=== PATIENT | male | born 1990 | race American Indian/Alaskan Native ===

== ENCOUNTER 2019-01-14 09:49 | Day surgery (SDC) | payer MEDICARE ==
[~2019-01-14 09:49] MED LIST: ANCEF/STERILE WATER 2 GM/20 ML 2 GM/20 ML SYRINGE IV NR; HEPARIN 10,000 UNITS/10 ML IR ONE; MARCAINE 0.5% INFILTRATI ONE; NACL 0.9% 1000 ML 1,000 ML IV SCH; NACL 0.9% 500 ML IV ONE; NACL 0.9% IR ONE
[2019-01-14] MEDS ORDERED: NARCAN 0.4 MG/1 ML IV PRN (11:26)
[2019-01-14] MEDS ORDERED: ZOFRAN IV PRN (11:26)
[2019-01-14] MEDS ORDERED: DILAUDID IV PRN (11:26)
[2019-01-14] MEDS ORDERED: SUBLIMAZE IV PRN (11:26)
--- NOTE | 2019-01-14 11:26 | Anesthesia Day of Surgery ---
Anesthesia Day of Surgery - Day of Surgery Patient Examined: Yes Patient H&P Reviewed: Yes Patient is NPO: Yes Beta Blockers: No Cardiac Clearance: No Pulmonary Clearance: No
--- NOTE | 2019-01-14 11:26 | Anesthesia Consultation ---
Anesthesia Consult and Med Hx Date of service: 01/14/19 - Airway Anesthetic Teeth Evaluation: Good ROM Head & Neck: Adequate Mental/Hyoid Distance: Adequate Mallampati Class: Class II Intubation Access Assessment: Good - Pulmonary Exam CTA: Yes - Cardiac Exam Cardiac Exam: RRR - Pre-Operative Health Status ASA Pre-Surgery Classification: ASA3 Proposed Anesthetic Plan: General - Pulmonary Hx Asthma: Yes (Last used inhaler "sometime last year") - Cardiovascular System Hx Hypertension: Yes - Central Nervous System Hx Psychiatric Problems: Yes - Endocrine Hx Renal Disease: Yes Hx End Stage Renal Disease: Yes - Hematic Hx Anemia: Yes - Other Systems Hx Substance Use: Yes (Marijuana occas) Hx Cancer: No
[2019-01-14] MEDS ORDERED: NACL 0.9% 500 ML IV ONE (16:00)
[2019-01-14] MEDS ORDERED: HEPARIN 10,000 UNITS/10 ML IR ONE (16:00)
[2019-01-14] MEDS ORDERED: NACL 0.9% IR ONE ×2 (16:00)
[2019-01-14] MEDS ORDERED: MARCAINE 0.5% INFILTRATI ONE ×2 (16:00)
[2019-01-14] MEDS ORDERED: DIPRIVAN 10 MG/ML IV ONE (16:03)
[2019-01-14] MEDS ORDERED: DILAUDID ONE (16:03)
--- NOTE | 2019-01-14 18:02 | Post Operative Note ---
Pre-op diagnosis: end-stage renal disease and HIV Post-op diagnosis: same Findings: Smallish radial artery. Good quality cephalic vein. Soft thrill and bruit in fistula Procedure: Creation of left forearm transposed cephalic vein to radial artery hemodialysis fistula Anesthesia: TRISTA Surgeon: FELTON HOFF Estimated blood loss: minimal Pathology: none Condition: stable Disposition: same day
--- NOTE | 2019-01-14 18:07 | Short Stay Summary ---
Short Stay Documentation Date of service: 01/14/19 Narrative H&P: Admitted to the operating room for outpatient creation of left arm AV fistula - History H&P: obtained from office - Allergies and Medications Current Medications: Allergies No Known Allergies Allergy (Unverified 01/12/19 17:15) Home Medications Medication Instructions Recorded Confirmed Last Taken Type Albuterol Sulfate [Albuterol 8.5 gm IH Q4H PRN 01/12/19 01/12/19 Unknown History Sulfate Hfa] Calcium Acetate [Phoslo] 3 cap PO TIDAC 01/12/19 01/14/19 01/13/19 11:05 History Darunavir/Cobicistat (Nf) 1 tab PO DAILY 01/12/19 01/14/19 01/13/19 20:00 History [Prezcobix 800 mg-150 mg (Nf)] Dolutegravir [Tivicay] 50 mg PO DAILY 01/12/19 01/14/19 01/13/19 20:00 History Labetalol HCl 400 mg PO BID 01/12/19 01/14/19 01/14/19 08:00 History amLODIPine [Norvasc] 10 mg PO DAILY 01/12/19 01/14/19 01/14/19 08:00 History lamiVUDine [lamiVUDine Hbv] 100 mg PO Q48HR 01/12/19 01/14/19 01/13/19 20:00 History Active Medications Fentanyl (Sublimaze) 50 mcg IV Q5MIN PRN PRN Reason: Pain , Severe (7-10) Hydromorphone HCl (Dilaudid) 0.5 mg IV Q10MIN PRN PRN Reason: Pain , Severe (7-10) Cefazolin Sodium (Ancef/Sterile Water 2 Gm/20 Ml) 2 gm in 20 mls @ 80 mls/hr IV PREOP NR; Protocol Stop: 01/14/19 23:59 Sodium Chloride (Nacl 0.9% 1000 Ml) 1,000 mls @ 42 mls/hr IV DIRECT MILDRED Last Admin: 01/14/19 11:05 Dose: 42 mls/hr Documented by: Naloxone HCl (Narcan 0.4 Mg/1 Ml) 0.1 mg IV Q2MIN PRN PRN Reason: Res Rate </= 8 or 02 SAT < 92% Ondansetron HCl (Zofran) 4 mg IV ONCE PRN PRN Reason: Nausea And Vomiting - Brief post op/procedure progress note Date of procedure: 01/14/19 Procedure: Pre-op diagnosis: end-stage renal disease and HIV Post-op diagnosis: same Findings: Smallish radial artery. Good quality cephalic vein. Soft thrill and bruit in fistula Procedure: Creation of left forearm transposed cephalic vein to radial artery hemodialysis fistula Anesthesia: GETA Surgeon: FELTON HOFF Estimated blood loss: minimal Pathology: none Condition: stable Disposition: same day - Disposition Condition at discharge: Stable Disposition: DC-01 TO HOME OR SELFCARE - Discharge Diagnoses (1) End stage renal disease on dialysis Status: Chronic Short Stay Discharge Plan Activity: advance as tolerated Diet: renal Wound: keep clean and dry Special Instructions: no heavy lifting Follow up with: PRIMARY CARE,MD [Primary Care Provider] - 7 Days FELTON HOFF MD [Staff Physician] - 7 Days Prescriptions: HYDROcodone/ACETAMINOPHEN [Oxly 5-325 Tablet] 1 each PO Q6H PRN #20 tablet PRN Reason: Pain, Moderate (4-6)
[2019-01-14 19:49] VITALS: BP 142/87
--- NOTE | 2019-01-14 21:38 | Operative Report ---
Operative Report Operative Report: Date of procedure: 01/14/2019 Pre-operative diagnosis: End-stage renal disease, HIV Post-operative diagnosis: Same Procedure name(s): Creation of left forearm transposed cephalic vein to radial artery fistula Surgeon: Maxx Robbins MD Paperhanger: None Anesthesia: Gen. via LMA EBL: Less than 10 mL Specimen(s): None Complications: None Findings: Small radial artery with some spasm. Excellent cephalic vein which drains into the basilic system Procedure: Patient in the supine position with the left arm extended the entire extremity is prepped and draped using standard sterile technique. A used to ultrasound and a tourniquet to confirm the cephalic vein was adequate for fistula creation. I then made a longitudinal incision near the wrist over the vein and carried down sharply through the subcutaneous tissue. The vein was mobilized for several centimeters. A second vertical incision was made along the distal volar aspect of the forearm overlying the radial artery and carried down through the subcutaneous tissue. Itself had some minor spasm otherwise was on the lower end of adequate. Once mobilized I then created a subcutaneous tunnel between the 2 incisions and then divided the cephalic vein distally. It was irrigated and hydrodilated. It was then brought through the tunnel into the radial artery incision and a nonrotational fashion. Artery was then occluded and the inflow was dilated to 2-1/2 mm using Ignacio dilators. This was after a longitudinal arteriotomy had been made. Inflow was adequate. An end to side anastomosis was then created using 6-0 Prolene suture in running technique. Prior to completion of the suture line antegrade and retrograde flushing was performed and the suture line was then completed. Lobe was released retrograde into the fistula then antegrade and then released back to the hand. Fistula developed a soft thrill and bruit. Hemostasis was adequate and the incisions were blocked with Marcaine and closed using 3-0 Vicryl subcutaneous 4-0 Monocryl subcuticular. The skin was sealed with Dermabond. The fistula thrill was not as robust as I would have liked but the patient had a relative hypotensive blood pressure and therefore I felt that it was probably satisfactory after interrogation with the intraoperative ultrasound showed arterialized flow throughout the vein. Patient was then returned to the supine position and extubated and returned to the recovery room in stable condition having tolerated the procedure well. Sponge and needle counts were correct.
--- NOTE | 2019-01-15 08:50 | Post Anesthesia Evaluation ---
- Post Anesthesia Evaluation Patient Participated: Yes Airway Patent: Yes Stable Respiratory Function: Yes Nausea/Vomiting: No Temp > 96.8F: Yes Pain Manageable: Yes Adequeate Hydration: Yes Anesthesia Complications: No
== END 2019-01-14 19:30 | disposition home or self-care (01) ==
LOC: OR 09:49
PROVIDERS: ATTEND Surgery Vascular Surgery
DX: I12.0 Hypertensive chronic kidney disease with stage 5 chronic kidney disease or end stage renal disease (principal); N18.6 End stage renal disease; B20 Human immunodeficiency virus [HIV] disease; G43.909 Migraine, unspecified, not intractable, without status migrainosus; J45.909 Unspecified asthma, uncomplicated; F32.9 Major depressive disorder, single episode, unspecified; Z98.890 Other specified postprocedural states; Z79.899 Other long term (current) drug therapy; Z79.01 Long term (current) use of anticoagulants; Z99.2 Dependence on renal dialysis; Z86.2 Personal history of diseases of the blood and blood-forming organs and certain disorders involving the immune mechanism
CPT/HCPCS: 36821; 82803; C1757; C1769; C1894; J0690; J1170; J1644; J2405; J2704; J7030; J7040

== ENCOUNTER 2019-12-26 16:06 | Emergency (ER) | payer MEDICARE ==
--- NOTE | 2019-12-26 16:51 | Emergency Department Report ---
ED Palpitations HPI - General Chief Complaint: Arrhythmia/Palpitations Stated Complaint: HIGH HEART RATE Time Seen by Provider: 12/26/19 16:46 Source: EMS Mode of arrival: Ambulatory Limitations: No Limitations - History of Present Illness Initial Comments: Patient is 29 years old male with history of end-stage renal disease on hemodialysis. Patient brought to the emergency room via EMS from a dialysis center after patient became tachycardic. Patient sent for evaluation. Patient stated that he had 30 minutes left in his dialysis session. Patient stated that since he started dialysis he started to be tachycardic. He also stated that he became anxious sometimes. Patient denied any chest pain, shortness of breath, nausea or vomiting. Patient also denied any lower extremity swelling or pain. MD Complaint: rapid heart beat, "heart racing", palpitations -: This afternoon Context: occured during rest Associated Symptoms: denies other symptoms - Related Data Home Medications Medication Instructions Recorded Confirmed Last Taken Albuterol Sulfate [Albuterol 8.5 gm IH Q4H PRN 01/12/19 01/12/19 Unknown Sulfate Hfa] Calcium Acetate [Phoslo] 3 cap PO TIDAC 01/12/19 01/14/19 01/13/19 11:05 Darunavir/Cobicistat (Nf) 1 tab PO DAILY 01/12/19 01/14/19 01/13/19 20:00 [Prezcobix 800 mg-150 mg (Nf)] Dolutegravir [Tivicay] 50 mg PO DAILY 01/12/19 01/14/19 01/13/19 20:00 Labetalol HCl 400 mg PO BID 01/12/19 01/14/19 01/14/19 08:00 amLODIPine 10 mg PO DAILY 01/12/19 01/14/19 01/14/19 08:00 lamiVUDine [lamiVUDine Hbv] 100 mg PO Q48HR 01/12/19 01/14/19 01/13/19 20:00 Previous Rx's Medication Instructions Recorded Last Taken Type HYDROcodone/ACETAMINOPHEN [[place] 1 each PO Q6H PRN #20 tablet 01/14/19 Unknown Rx 5-325 Tablet] Allergies Allergy/AdvReac Type Severity Reaction Status Date / Time No Known Allergies Allergy Unverified 01/12/19 17:15 ED Review of Systems ROS: Stated complaint: HIGH HEART RATE Other details as noted in HPI Comment: All other systems reviewed and negative Constitutional: denies: chills, fever Respiratory: denies: cough, orthopnea, shortness of breath, SOB with exertion, SOB at rest, wheezing Cardiovascular: palpitations. denies: chest pain, dyspnea on exertion, orthopnea Gastrointestinal: denies: abdominal pain, nausea, vomiting, diarrhea, constipation, hematemesis, melena, hematochezia Musculoskeletal: denies: back pain Neurological: denies: headache, weakness, numbness, paresthesias, confusion, abnormal gait ED Past Medical Hx - Past Medical History Previous Medical History?: Yes Hx Hypertension: Yes Hx Renal Disease: Yes (T, Th, Sat- Fistula L arm) Hx Headaches / Migraines: Yes (Migraines) Hx Asthma: Yes (Last used inhaler "sometime last year") Hx HIV: Yes - Surgical History Past Surgical History?: Yes Additional Surgical History: Lumbar fusion, L fistula - Social History Smoking Status: Light Tobacco Smoker Substance Use Type: Marijuana - Medications Home Medications: Home Medications Medication Instructions Recorded Confirmed Last Taken Type Albuterol Sulfate [Albuterol 8.5 gm IH Q4H PRN 01/12/19 01/12/19 Unknown History Sulfate Hfa] Calcium Acetate [Phoslo] 3 cap PO TIDAC 01/12/19 01/14/19 01/13/19 11:05 History Darunavir/Cobicistat (Nf) 1 tab PO DAILY 01/12/19 01/14/19 01/13/19 20:00 History [Prezcobix 800 mg-150 mg (Nf)] Dolutegravir [Tivicay] 50 mg PO DAILY 01/12/19 01/14/19 01/13/19 20:00 History Labetalol HCl 400 mg PO BID 01/12/19 01/14/19 01/14/19 08:00 History amLODIPine 10 mg PO DAILY 01/12/19 01/14/19 01/14/19 08:00 History lamiVUDine [lamiVUDine Hbv] 100 mg PO Q48HR 01/12/19 01/14/19 01/13/19 20:00 History HYDROcodone/ACETAMINOPHEN [[place] 1 each PO Q6H PRN #20 tablet 01/14/19 Unknown Rx 5-325 Tablet] ED Physical Exam - General Limitations: No Limitations General appearance: alert, in no apparent distress - Head Head exam: Present: atraumatic, normocephalic, normal inspection - Eye Eye exam: Present: normal appearance - ENT ENT exam: Present: normal exam, normal orophraynx, mucous membranes moist - Neck Neck exam: Present: normal inspection, full ROM. Absent: tenderness, meningismus, lymphadenopathy, thyromegaly - Respiratory Respiratory exam: Present: normal lung sounds bilaterally - Cardiovascular Cardiovascular Exam: Present: tachycardia - GI/Abdominal GI/Abdominal exam: Present: soft, normal bowel sounds. Absent: distended, tenderness, guarding, rebound, rigid, organomegaly, mass, bruit, pulsatile mass, hernia - Extremities Exam Extremities exam: Present: normal inspection, full ROM, normal capillary refill. Absent: tenderness, pedal edema, calf tenderness - Back Exam Back exam: Present: normal inspection, full ROM. Absent: CVA tenderness (R), CVA tenderness (L) - Neurological Exam Neurological exam: Present: alert, oriented X3, CN II-XII intact, normal gait, reflexes normal. Absent: motor sensory deficit - Psychiatric Psychiatric exam: Present: normal mood - Skin Skin exam: Present: warm, intact, normal color ED Course Vital Signs 12/26/19 12/26/19 12/26/19 16:18 16:21 16:30 Temperature 98.8 F Pulse Rate 125 H 123 H Respiratory 18 16 Rate Blood Pressure 142/107 Blood Pressure 149/102 [Right] O2 Sat by Pulse 97 98 100 Oximetry 12/26/19 12/26/19 12/26/19 17:00 17:30 19:30 Temperature 98.4 F Pulse Rate 133 H 128 H 112 H Respiratory 18 22 21 Rate Blood Pressure 166/131 132/91 Blood Pressure 139/90 [Right] O2 Sat by Pulse 97 98 Oximetry 12/26/19 12/26/19 12/26/19 20:00 20:30 21:30 Temperature Pulse Rate 99 H 92 H 105 H Respiratory 16 14 14 Rate Blood Pressure 157/79 134/87 138/98 Blood Pressure [Right] O2 Sat by Pulse 97 97 98 Oximetry ED Medical Decision Making - Lab Data Result diagrams: 12/26/19 16:41 12/26/19 16:41 - EKG Data -: EKG Interpreted by [place] EKG shows normal: sinus rhythm Rate: tachycardia - EKG Data Interpretation: no acute changes - Radiology Data Radiology results: report reviewed - Medical Decision Making Patient is 29 years old male with history of end-stage renal disease on hemodialysis. Patient brought to the emergency room via EMS from a dialysis center after patient became tachycardic. Patient sent for evaluation. Patient stated that he had 30 minutes left in his dialysis session. Patient stated that since he started dialysis he started to be tachycardic. He also stated that he became anxious sometimes. Patient denied any chest pain, shortness of breath, nausea or vomiting. Patient also denied any lower extremity swelling or pain. Patient labs reviewed and is unremarkable except for his chronic elevation of creatinine. D-dimer slightly elevated however VQ scan showed a low probability for pulmonary embolism. 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 Critical care attestation.: If time is entered above; I have spent that time in minutes in the direct care of this critically ill patient, excluding procedure time. ED Disposition Clinical Impression: End stage renal disease on dialysis, Palpitation Disposition: DC-01 TO HOME OR SELFCARE Is pt being admited?: No Condition: Stable Instructions: Palpitations (ED), Chronic Kidney Disease (ED) Referrals: PRIMARY CARE, [Primary Care Provider] - 3-5 Days
--- NOTE | 2019-12-26 17:11 | XRay Report ---
CHEST 1 VIEW INDICATION: SOB. COMPARISON: None. FINDINGS: Support devices: None. Heart: Within normal limits. Lungs/Pleura: No acute air space or interstitial disease. Additional findings: None. IMPRESSION: No acute abnormality. Signer Name: Constantino Harding MD Signed: 12/26/2019 5:06 PM Workstation Name: [id number]
[2019-12-26 17:15] LABS: Basophils % (Auto) 0.7 % (0.0-1.8); Eosinophils # (Auto) 0.1 K/mm3 (0.0-0.4); Eosinophils % (Auto) 1.2 % (0.0-4.3); Hematocrit 37.6 % (35.5-45.6); Hemoglobin 12.1 gm/dl (11.8-15.2); Lymphocytes # (Auto) 1.6 K/mm3 (1.2-5.4); Mean Corpuscular HGB Conc 32 % (32-34); Mean Corpuscular Volume 72 fl (84-94); Monocytes # (Auto) 0.7 K/mm3 (0.0-0.8); Monocytes % (Auto) 11.9 % (0.0-7.3); Platelet Count 261 K/mm3 (140-440)
[2019-12-26 17:19] LABS: Albumin 4.8 g/dL (3.9-5); Calcium 10.1 mg/dL (8.4-10.2)
[2019-12-26 17:21] LABS: Red Cell Distribution Width 22.3 % (13.2-15.2)
--- NOTE | 2019-12-26 21:23 | Nuclear Medicine Report ---
NUCLEAR MEDICINE VENTILATION/PERFUSION LUNG SCAN INDICATION: Shortness of breath TECHNIQUE: 20 mCi of Xenon-133 were given by inhalation. 5 mCi of Tc 99m MAA were given by IV. FINDINGS: Comparison with chest radiograph from 12/26/2019. Wash-in, equilibrium, and wash-out phases of ventilation are normal. No air-trapping is seen. No perfusion defects are noted. IMPRESSION: Low probability for pulmonary embolism. Signer Name: Rupesh Heredia MD Signed: 12/26/2019 9:19 PM Workstation Name: [id number]
[2019-12-26 22:41] VITALS: BP 147/93
== END 2019-12-26 22:10 | disposition home or self-care (01) ==
LOC: ED 16:06
DX: I12.0 Hypertensive chronic kidney disease with stage 5 chronic kidney disease or end stage renal disease (principal); N18.6 End stage renal disease; R00.2 Palpitations; G43.909 Migraine, unspecified, not intractable, without status migrainosus; J45.909 Unspecified asthma, uncomplicated; F12.90 Cannabis use, unspecified, uncomplicated; F17.200 Nicotine dependence, unspecified, uncomplicated; Z21 Asymptomatic human immunodeficiency virus [HIV] infection status; Z99.2 Dependence on renal dialysis; Z79.899 Other long term (current) drug therapy; Z98.890 Other specified postprocedural states
CPT/HCPCS: 36415; 71045; 78582; 80053; 85025; 85379; 93005; 93010; 99284; A9540; A9558

== ENCOUNTER 2022-03-16 07:46 | Emergency (ER) | payer MEDICARE ==
[2022-03-16] MEDS ORDERED: MIDAZOLAM 2 MG/2 ML INJ IV ONE (07:48)
[2022-03-16] MEDS ORDERED: LORazepam 2 MG/ML VIAL IM PRN (07:48)
[2022-03-16] MEDS ORDERED: HALOPERIDOL LACTATE 5 MG/1 ML INJ IM PRN (07:48)
--- NOTE | 2022-03-16 07:56 | Emergency Department Report ---
ED General Adult HPI - General Chief complaint: Altered Mental Status Stated complaint: UNRESPONSIVE Time Seen by Provider: 03/16/22 07:47 Source: patient, EMS (Verbal report received from emergency medical services. EMS documentation not available at time of chart dictation ), RN notes reviewed, old records reviewed Mode of arrival: Stretcher Limitations: Altered Mental Status - History of Present Illness Initial comments: The patient was evaluated in the emergency department for symptoms described in the history of present illness. He/she was evaluated in the context of the global COVID-19 pandemic, which necessitated consideration that the patient might be at risk for infection with the virus that causes COVID-19. Institutional protocols and algorithms that pertain to the evaluation of patients at risk for COVID-19 are in a state of rapid change based on information released by regulatory bodies including the CDC and federal and state organizations. These policies and algorithms were followed during the patient's care in the emergency department. Please note that these policies, procedures and recommendations changed on a rapid basis. This is a 31-year-old gentleman who was brought to the hospital by emergency medical services, with an EMS articulated complaint of altered mental status. Patient reportedly has a history of HIV, unknown CD4 count, unknown viral load, and end-stage renal disease on hemodialysis, unknown what his dialysis days are. The patient is altered. The patient is awake, moving 4 extremities, and states "leave me alone." He is not accompanied by friends or family at this time for collateral information or additional information. All history is obtained from EMS. EMS reports that the patient is found outside, naked, and possibly minimally responsive. They report normal Accu-Chek, and they report that there may have been a concern of possible Benadryl overdose. In the emergency room, the patient is awake, breathing spontaneously, agitated, and moving 4 extremities. The patient is impaired, and does not have decision- making capacity, and therefore requires medication with haloperidol, midazolam, for acquisition of diagnostic studies. Currently, blood pressure 250 systolic, he is still moving 4 extremities, and not cooperative. The patient does not follow commands. The patient is not accompanied by friends or family at this time for collateral information or additional information. Rectal temperature 98 degrees. Accu-Chek within normal limits -: unknown - Related Data Home Medications Medication Instructions Recorded Confirmed Last Taken Albuterol Sulfate [Albuterol 8.5 gm IH Q4H PRN 01/12/19 01/12/19 Unknown Sulfate Hfa] Calcium Acetate [Phoslo] 3 cap PO TIDAC 01/12/19 01/14/19 01/13/19 11:05 Darunavir/Cobicistat (Nf) 1 tab PO DAILY 01/12/19 01/14/19 01/13/19 20:00 [Prezcobix 800 mg-150 mg (Nf)] Dolutegravir [Tivicay] 50 mg PO DAILY 01/12/19 01/14/19 01/13/19 20:00 Labetalol HCl 400 mg PO BID 01/12/19 01/14/19 01/14/19 08:00 amLODIPine 10 mg PO DAILY 01/12/19 01/14/19 01/14/19 08:00 lamiVUDine [lamiVUDine Hbv] 100 mg PO Q48HR 01/12/19 01/14/19 01/13/19 20:00 Previous Rx's Medication Instructions Recorded Last Taken Type HYDROcodone/ACETAMINOPHEN [Clarita 1 each PO Q6H PRN #20 tablet 01/14/19 Unknown Rx 5-325 Tablet] Allergies Allergy/AdvReac Type Severity Reaction Status Date / Time No Known Allergies Allergy Unverified 01/12/19 17:15 ED Review of Systems ROS: Stated complaint: UNRESPONSIVE Other details as noted in HPI Comment: Unobtainable due to pts medical conditions ED Past Medical Hx - Past Medical History Hx Hypertension: Yes Hx Renal Disease: Yes (T, Th, Sat- Fistula L arm) Hx Headaches / Migraines: Yes (Migraines) Hx Asthma: Yes (Last used inhaler "sometime last year") Hx HIV: Yes - Surgical History Additional Surgical History: Lumbar fusion, L fistula - Social History Smoking Status: Light Tobacco Smoker Substance Use Type: Marijuana - Medications Home Medications: Home Medications Medication Instructions Recorded Confirmed Last Taken Type Albuterol Sulfate [Albuterol 8.5 gm IH Q4H PRN 01/12/19 01/12/19 Unknown History Sulfate Hfa] Calcium Acetate [Phoslo] 3 cap PO TIDAC 01/12/19 01/14/19 01/13/19 11:05 History Darunavir/Cobicistat (Nf) 1 tab PO DAILY 01/12/19 01/14/19 01/13/19 20:00 History [Prezcobix 800 mg-150 mg (Nf)] Dolutegravir [Tivicay] 50 mg PO DAILY 01/12/19 01/14/19 01/13/19 20:00 History Labetalol HCl 400 mg PO BID 01/12/19 01/14/19 01/14/19 08:00 History amLODIPine 10 mg PO DAILY 01/12/19 01/14/19 01/14/19 08:00 History lamiVUDine [lamiVUDine Hbv] 100 mg PO Q48HR 01/12/19 01/14/19 01/13/19 20:00 History HYDROcodone/ACETAMINOPHEN [Clarita 1 each PO Q6H PRN #20 tablet 01/14/19 Unknown Rx 5-325 Tablet] ED Physical Exam - General Limitations: Altered Mental Status General appearance: other (The patient is agitated) - Head Head exam: Present: atraumatic, normocephalic - Eye Eye exam: Present: normal appearance, EOMI - ENT ENT exam: Present: normal exam, normal orophraynx, mucous membranes moist, normal external ear exam - Neck Neck exam: Present: normal inspection, full ROM. Absent: tenderness, meningismus - Respiratory Respiratory exam: Present: decreased breath sounds. Absent: respiratory distress, rales, rhonchi, stridor - Cardiovascular Cardiovascular Exam: Present: regular rate, normal rhythm, normal heart sounds. Absent: bradycardia, tachycardia, irregular rhythm, systolic murmur, diastolic murmur, rubs, gallop - GI/Abdominal GI/Abdominal exam: Present: soft. Absent: distended, tenderness, guarding, rebound, rigid, pulsatile mass - Rectal Rectal exam: Present: normal inspection (Chaperoned by nurse) - exam: Present: normal inspection External exam: Present: normal external exam, other (Chaperoned by nurse). Absent: bleeding - Extremities Exam Extremities exam: Present: normal inspection (Left upper extremity fistula, with appropriate thrill, without redness, pus or streak), full ROM, other (2+ pulses noted in the bilateral upper and lower extremities. There is no palpable cord. negative Homans sign. Muscular compartments are soft. The pelvis is stable.). Absent: calf tenderness - Back Exam Back exam: Present: normal inspection. Absent: tenderness, CVA tenderness (R), CVA tenderness (L), paraspinal tenderness, vertebral tenderness - Neurological Exam Neurological exam: Present: altered, other (The patient is awake. The patient is moving 4 extremities. The patient is making nonsensical statements.) - Psychiatric Psychiatric exam: Present: agitated - Skin Skin exam: Present: warm, dry, intact, normal color. Absent: rash ED Course Vital Signs 03/16/22 03/16/22 08:02 09:08 Temperature 98.5 F 99.4 F Pulse Rate 82 78 Respiratory 14 18 Rate Blood Pressure 200/114 Blood Pressure 200/110 [Right] O2 Sat by Pulse 96 4 L Oximetry - Reevaluation(s) Reevaluation #1: 03/16/22 08:55 Differential diagnosis, include but not limited to: Toxic encephalopathy, metabolic encephalopathy, pneumonia, urinary tract infection Assessment and plan: 31-year-old gentleman, who is afebrile, protecting airway, not significantly hypoxic, but markedly hypertensive, with a possible Benadryl overdose, presenting with encephalopathy. Patient required medication with haloperidol, midazolam, he is still agitated, thrashing, and we are not able to obtain CT scan brain and cervical spine, so we will medicate him with Geodon. He will also be medicated with labetalol for his hypertension. A mental health consultation is requested given history of possible Benadryl overdose. Serum toxicology studies are unremarkable. He is placed on hold status. His leukocytosis is appreciated, I suspect that this is a stress reaction. Lactic acidosis is reviewed and appreciated, and I suspect that this is a type I I lactic acidosis. Nevertheless, given alteration in mental status, presence of systemic inflammat ory response syndrome, immune compromise, we will emergently and administratively consented this patient for lumbar puncture to exclude intracranial pathology. We will medicate him empirically with ceftriaxone, Decadron, vancomycin, as well as acyclovir, pending CSF results. He will receive hemodialysis. I contacted nephrology on-call, Dr. Watts. Discussed the patient's history, physical, laboratory studies and imaging studies and overall clinical impression. He agrees with the plan of care, and will arrange for hemodialysis. Given that patient is demonstrating evidence of volume overload, 30 cc/kg bolus of IV fluid contraindicated. We will admit this patient to the medical service once his initial diagnostic CT scans have been obtained. 03/16/22 08:57 03/16/22 09:11 Reevaluation #2: 06/03/22 09:01 Patient sleeping and resting comfortably in stretcher. Have contacted CT scan. They will come by and pick the patient up 03/16/22 09:[address] scan shows interventricular hemorrhage. Therefore, cannot perform spinal tap on patient. I suspect his presentation is secondary to his hemorrhage. I do not suspect infectious pathology at this time. Have rediscussed with nephrology. He will require transfer to a facility that can provide neurology critical care and ventricular drain placement. While this hospital has neurosurgery on-call, we do not have the ability to perform ventricular drain placement, and monitoring. We will start this patient on a Cardene drip. We will also administer vasopressin. Have requested that care te am contact [facility], to arrange transfer to [facility] neurology critical care. Have also requested stat wet read of C-spine CT. Currently breathing spontaneously, and does not require intubation. Will cancel antibiotics at this time. 10 points Angela Coma Score E(2) V(3) M(5) Angela Coma Scale 03/16/22 09:46 on hold with [facility] awaiting discussion with neurology critical care Reevaluation #3: 03/16/22 10:22 I discussed the patient's history, physical, laboratory studies and imaging studies and clinical impression with neurology critical care, Dr. Javier Lyn. He has also personally evaluated this patient CT scan of the brain. He will accept this patient to the [facility], neurology critical care unit. Extensive discussion had with patient's family member at the bedside regarding guarded neurologic prognosis. I then contacted [facility], critical care transport. They do not have available ambulances for critical care transport. We will therefore obtain life flight to fly this patient out. This patient has an emergent condition at this time which cannot be definitively managed at this hospital. We will optimize his blood pressure and symptoms to the best of our ability, he requires transfer to a higher level of care. He is currently protecting his airway, and is on Cardene for hypertensive emergency. 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1 (0.0-4.3) % Baso % (Auto) 0.3 (0.0-1.8) % Lymph # (Auto) 0.9 L (1.2-5.4) K/mm3 Nicholas # (Auto) 0.9 H (0.0-0.8) K/mm3 Eos # (Auto) 0.0 (0.0-0.4) K/mm3 Baso # (Auto) 0.0 (0.0-0.1) K/mm3 Seg Neutrophils % 85.5 H (40.0-70.0) % Seg Neutrophils # 11.1 H (1.8-7.7) K/mm3 PT 13.4 (12.2-14.9) Sec. INR 0.92 (0.87-1.13) Sodium 141 (137-145) mmol/L Potassium 4.0 (3.6-5.0) mmol/L Chloride 95.9 L (98-107) mmol/L Carbon Dioxide 27 (22-30) mmol/L Anion Gap 22 mmol/L BUN 32 H (9-20) mg/dL Creatinine 8.9 H (0.8-1.3) mg/dL Estimated GFR 9 ml/min BUN/Creatinine Ratio 4 % Glucose 108 H (75-100) mg/dL Lactic Acid (0.7-2.0) mmol/L Calcium 9.4 (8.4-10.2) mg/dL Total Bilirubin 0.50 (0.1-1.2) mg/dL AST 29 (5-40) units/L ALT 25 (7-56) units/L Alkaline Phosphatase 131 H (35-129) units/L Total Creatine Kinase 176 H (55-170) units/L Total Protein 9.6 H (6.3-8.2) g/dL Albumin 4.8 (3.9-5) g/dL Albumin/Globulin Ratio 1.0 % Salicylates (2.8-20.0) mg/dL Acetaminophen (10.0-30.0) ug/mL Plasma/Serum Alcohol (0-0.07) % 03/16/22 03/16/22 03/16/22 Range/Units 08:05 08:05 08:05 WBC (4.5-11.0) K/mm3 RBC (3.65-5.03) M/mm3 Hgb (11.8-15.2) gm/dl Hct (35.5-45.6) % MCV (84-94) fl MCH (28-32) pg MCHC (32-34) % RDW (13.2-15.2) % Plt Count (140-440) K/mm3 Lymph % (Auto) (13.4-35.0) % Nicholas % (Auto) (0.0-7.3) % Eos % (Auto) (0.0-4.3) % Baso % (Auto) (0.0-1.8) % Lymph # (Auto) (1.2-5.4) K/mm3 Nicholas # (Auto) (0.0-0.8) K/mm3 Eos # (Auto) (0.0-0.4) K/mm3 Baso # (Auto) (0.0-0.1) K/mm3 Seg Neutrophils % (40.0-70.0) % Seg Neutrophils # (1.8-7.7) K/mm3 PT (12.2-14.9) Sec. INR (0.87-1.13) Sodium (137-145) mmol/L Potassium (3.6-5.0) mmol/L Chloride (98-107) mmol/L Carbon Dioxide (22-30) mmol/L Anion Gap mmol/L BUN (9-20) mg/dL Creatinine (0.8-1.3) mg/dL Estimated GFR ml/min BUN/Creatinine Ratio % Glucose (75-100) mg/dL Lactic Acid 3.50 H* (0.7-2.0) mmol/L Calcium (8.4-10.2) mg/dL Total Bilirubin (0.1-1.2) mg/dL AST (5-40) units/L ALT (7-56) units/L Alkaline Phosphatase (35-129) units/L Total Creatine Kinase (55-170) units/L Total Protein (6.3-8.2) g/dL Albumin (3.9-5) g/dL Albumin/Globulin Ratio % Salicylates < 0.3 L (2.8-20.0) mg/dL Acetaminophen 5.0 L (10.0-30.0) ug/mL Plasma/Serum Alcohol (0-0.07) % 03/16/22 Range/Units 08:05 WBC (4.5-11.0) K/mm3 RBC (3.65-5.03) M/mm3 Hgb (11.8-15.2) gm/dl Hct (35.5-45.6) % MCV (84-94) fl MCH (28-32) pg MCHC (32-34) % RDW (13.2-15.2) % Plt Count (140-440) K/mm3 Lymph % (Auto) (13.4-35.0) % Nicholas % (Auto) (0.0-7.3) % Eos % (Auto) (0.0-4.3) % Baso % (Auto) (0.0-1.8) % Lymph # (Auto) (1.2-5.4) K/mm3 Nicholas # (Auto) (0.0-0.8) K/mm3 Eos # (Auto) (0.0-0.4) K/mm3 Baso # (Auto) (0.0-0.1) K/mm3 Seg Neutrophils % (40.0-70.0) % Seg Neutrophils # (1.8-7.7) K/mm3 PT (12.2-14.9) Sec. INR (0.87-1.13) Sodium (137-145) mmol/L Potassium (3.6-5.0) mmol/L Chloride (98-107) mmol/L Carbon Dioxide (22-30) mmol/L Anion Gap mmol/L BUN (9-20) mg/dL Creatinine (0.8-1.3) mg/dL Estimated GFR ml/min BUN/Creatinine Ratio % Glucose (75-100) mg/dL Lactic Acid (0.7-2.0) mmol/L Calcium (8.4-10.2) mg/dL Total Bilirubin (0.1-1.2) mg/dL AST (5-40) units/L ALT (7-56) units/L Alkaline Phosphatase (35-129) units/L Total Creatine Kinase (55-170) units/L Total Protein (6.3-8.2) g/dL Albumin (3.9-5) g/dL Albumin/Globulin Ratio % Salicylates (2.8-20.0) mg/dL Acetaminophen (10.0-30.0) ug/mL Plasma/Serum Alcohol < 0.01 (0-0.07) % - EKG Data -: EKG Interpreted by [place] EKG shows normal: sinus rhythm - EKG Data 03/16/22 08:53 The prehospital EKG is interpreted by myself at 8: 3 0. This is a sinus rhythm, with a ventricular rate of approximately 75 bpm. There is a normal axis, there is motion artifact. The QTC is prolonged at 469 ms. This is an abnormal EKG. This is not a STEMI. 03/16/22 10:49 Emergency room EKG is interpreted at 10: 3 0 a.m. sinus rhythm, 60 bpm. Borderline leftward axis deviation. QTC 4 9 4 ms. Motion artifact. Nonspecific abnormalities. This is an abnormal EKG. This is not a STEMI - Radiology Data Radiology results: pending, report reviewed, image reviewed . CHEST 1 VIEW INDICATION: Altered Mental Status. COMPARISON: 12/26/2019 FINDINGS: SUPPORT DEVICES: None. HEART: New moderate cardiomegaly. LUNGS/PLEURA: Mild interstitial edema. Left lung base has been excluded. Cannot exclude underlying airspace disease or effusion. ADDITIONAL FINDINGS: None. IMPRESSION: 1. New moderate cardiomegaly and lung findings as above. Signer Name: Antonio Zayas MD Signed: 03/16/2022 7:21 AM Workstation Name: [id number] CT CERVICAL SPINE: 03/16/2022 INDICATION / CLINICAL INFORMATION: found on ground down. COMPARISON: None available. FINDINGS: CT images of the cervical spine were obtained. Images are evaluated in the axial, coronal, and sagittal planes. There is right convex scoliosis centered at the cervicothoracic junction. Reversal of cervical lordosis is present in the sagittal plane with the patient positioned for this exam. There is no evidence of acute abnormality. Vertebral body height and alignment is otherwise well preserved. CRANIOCERVICAL JUNCTION : Unremarkable. PARASPINAL STRUCTURES: Unremarkable IMPRESSION: No acute cervical spine abnormality. All CT scans at this location are performed using dose reduction to ALARA by means of automated exposure control. Signer Name: Adonis Nagy MD Signed: 03/16/2022 8:49 AM Workstation Name: [id number] CT BRAIN: 03/16/2022 INDICATION / CLINICAL INFORMATION: Altered Mental Status. COMPARISON: None available. FINDINGS: BRAIN/INTRACRANIAL STRUCTURES: Unenhanced CT images of the brain were obtained. There is evidence of diffuse subarachnoid hemorrhage, with sulcal hyperdensity present in the sylvian fissures bilaterally as well as in the anterior interhemispheric fissure, basilar cisterns, and in posterior fossa extra-axial space. In addition, there is intraventricular hemorrhage, prominent in the left lateral ventricle and third ventricle, as well as in the fourth ventricle and to a lesser degree in the right lateral ventricle. Particular size is increased, with decreased jurado lcal visualization, in a pattern consistent with developing hydrocephalus. EXTRACRANIAL STRUCTURES: Unremarkable. IMPRESSION: Diffuse subarachnoid hemorrhage, intraventricular hemorrhage, developing hydrocephalus. CRITICAL RESULT: Time of Discovery (DEPUTY CLERK/CDT): [address] Time of Communication (DEPUTY CLERK/CDT): [address] Licensed Practitioner Receiving Report: Maria Eugenia PEARL In the emergency department Read-Back Performed: Yes. All CT scans at this location are performed using dose reduction to ALARA by means of automated exposure control. Signer Name: Adonis Nagy MD Signed: 03/16/2022 8:54 AM Workstation Name: [id number] Critical Care Time: Yes Critical care time in (mins) excluding proc time.: 65 Critical care attestation.: If time is entered above; I have spent that time in minutes in the direct care of this critically ill patient, excluding procedure time. ED Disposition Clinical Impression: End stage renal disease on dialysis, Acute encephalopathy, Intracranial he morrhage, Hypertensive emergency Disposition: 02 SHORT TERM HOSPITAL Is pt being admited?: No Does the pt Need Aspirin: No Condition: Critical Instructions: Hypertension (ED) Referrals: PRIMARY CAREMD [Primary Care Provider] - 3-5 Days
[2022-03-16 08:23] LABS: Basophils % (Auto) 0.3 % (0.0-1.8); Eosinophils % (Auto) 0.1 % (0.0-4.3); Hematocrit 32.1 % (35.5-45.6); Hemoglobin 10.1 gm/dl (11.8-15.2); Lymphocytes # (Auto) 0.9 K/mm3 (1.2-5.4); Mean Corpuscular HGB Conc 32 % (32-34); Mean Corpuscular Volume 78 fl (84-94); Monocytes # (Auto) 0.9 K/mm3 (0.0-0.8); Monocytes % (Auto) 7.1 % (0.0-7.3); Platelet Count 247 K/mm3 (140-440)
--- NOTE | 2022-03-16 08:25 | XRay Report ---
. CHEST 1 VIEW INDICATION: Altered Mental Status. COMPARISON: 12/26/2019 FINDINGS: SUPPORT DEVICES: None. HEART: New moderate cardiomegaly. LUNGS/PLEURA: Mild interstitial edema. Left lung base has been excluded. Cannot exclude underlying ai rspace disease or effusion. ADDITIONAL FINDINGS: None. IMPRESSION: 1. New moderate cardiomegaly and lung findings as above. Signer Name: Antonio Zayas MD Signed: 03/16/2022 8:21 AM Workstation Name: [id number]
[2022-03-16 08:30] LABS: Red Cell Distribution Width 23.7 % (13.2-15.2)
[2022-03-16 08:33] LABS: INR 0.92 (0.87-1.13)
[2022-03-16 08:45] LABS: Albumin 4.8 g/dL (3.9-5); Calcium 9.4 mg/dL (8.4-10.2)
[2022-03-16] MEDS ORDERED: ZIPRASIDONE MESYLATE 20 MG VIAL IM STA (08:45)
[2022-03-16] MEDS ORDERED: cefTRIAXone/NS 2 GM/100 ML 2 GM/100 ML BAG IV ONE (09:07)
[2022-03-16] MEDS ORDERED: dexAMETHasone 20 MG/5 ML VIAL IV ONE (09:08)
[2022-03-16] MEDS ORDERED: LIDOCAINE (1%) 10 MG/1 ML VIAL 20 ML MDV INFILTRATI ONE (09:09)
[2022-03-16] MEDS ORDERED: ACYCLOVIR 800 MG in SODIUM CHLORIDE 0.9% 100 ML IV STA (09:15)
--- NOTE | 2022-03-16 09:36 | Consultation ---
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 He presented to the ED due to AMS which appears to be secondary to Benadryl overdose. Renal consult was requeted for management of HD while inpatient Past History Past Medical History: anemia, ESRD, hypertension Medications and Allergies Allergies Allergy/AdvReac Type Severity Reaction Status Date / Time No Known Allergies Allergy Unverified 01/12/19 17:15 Home Medications Medication Instructions Recorded Confirmed Last Taken Type Albuterol Sulfate [Albuterol 8.5 gm IH Q4H PRN 01/12/19 01/12/19 Unknown History Sulfate Hfa] Calcium Acetate [Phoslo] 3 cap PO TIDAC 01/12/19 01/14/19 01/13/19 11:05 History Darunavir/Cobicistat (Nf) 1 tab PO DAILY 01/12/19 01/14/19 01/13/19 20:00 History [Prezcobix 800 mg-150 mg (Nf)] Dolutegravir [Tivicay] 50 mg PO DAILY 01/12/19 01/14/19 01/13/19 20:00 History Labetalol HCl 400 mg PO BID 01/12/19 01/14/19 01/14/19 08:00 History amLODIPine 10 mg PO DAILY 01/12/19 01/14/19 01/14/19 08:00 History lamiVUDine [lamiVUDine Hbv] 100 mg PO Q48HR 01/12/19 01/14/19 01/13/19 20:00 History HYDROcodone/ACETAMINOPHEN [Arley 1 each PO Q6H PRN #20 tablet 01/14/19 Unknown Rx 5-325 Tablet] Active Meds: Active Medications Haloperidol Lactate (Haloperidol Lactate 5 Mg/1 Ml Inj) 5 mg IM Q6HR PRN PRN Reason: Agitation Last Admin: 03/16/22 08:38 Dose: 5 mg Ceftriaxone Sodium (Rocephin/Ns 2 Gm/100 Ml) 2 gm in 100 mls @ 200 mls/hr IV ONCE ONE; Protocol Stop: 03/16/22 09:36 Vancomycin HCl 1,250 mg/ (Sodium Chloride) 525 mls @ 333 mls/hr IV ONCE ONE; Protocol Stop: 03/16/22 11:34 Acyclovir 800 mg/ Sodium (Chloride) 116 mls @ 100 mls/hr IV NOW STA; Protocol Stop: 03/16/22 10:24 Nicardipine HCl 50 mg/ Sodium (Chloride) 250 mls @ 25 mls/hr IV TITR MILDRED; Protocol Lorazepam (Lorazepam 2 Mg/Ml Vial) 2 mg IM Q4HR PRN PRN Reason: Agitation Last Admin: 03/16/22 08:38 Dose: 2 mg Review of Systems ROS unobtainable: due to mental status Exam - Vital Signs Vital signs: Vital Signs Temp Pulse Resp BP Pulse Ox 98.5 F 82 14 200/110 96 03/16/22 08:02 03/16/22 08:02 03/16/22 08:02 03/16/22 08:02 03/16/22 08:02 - General Appearance General appearance: well-developed, well-nourished EENT: ATNC, mucous membranes moist Neck: Present: neck supple Heart: regular Results - Lab Results 03/16/22 08:05 03/16/22 08:05 Most recent lab results Calcium 9.4 mg/dL (8.4-10.2) 03/16/22 08:05 Assessment and Plan ESRD on HD HTN Anemia in CKD Altered mental status HD today for clearance volume removal will assess HD needs daily renally dose meds strict I&O Daily weight
[2022-03-16] MEDS ORDERED: levETIRAcetam 1000 MG/NS 0.75% 1,000 MG/100 ML BAG IV ONE (09:45)
--- NOTE | 2022-03-16 09:53 | Cat Scan Report ---
CT CERVICAL SPINE: 03/16/2022 INDICATION / CLINICAL INFORMATION: found on ground down. COMPARISON: None available. FINDINGS: CT images of the cervical spine were obtained. Images are evaluated in the axial, coronal, and sagitt al planes. There is right convex scoliosis centered at the cervicothoracic junction. Reversal of cervical lordo sis is present in the sagittal plane with the patient positioned for this exam. There is no evidence of acute abnormality. Vertebral body height and alignment is otherwise well pres erved. CRANIOCERVICAL JUNCTION: Unremarkable. PARASPINAL STRUCTURES: Unremarkable IMPRESSION: No acute cervical spine abnormality. All CT scans at this location are performed using dose reduction to ALARA by means of automated expos ure control. Signer Name: Adonis Nagy MD Signed: 03/16/2022 9:49 AM Workstation Name: [id number]
--- NOTE | 2022-03-16 09:58 | Cat Scan Report ---
CT BRAIN: 03/16/2022 INDICATION / CLINICAL INFORMATION: Altered Mental Status. COMPARISON: None available. FINDINGS: BRAIN/INTRACRANIAL STRUCTURES: Unenhanced CT images of the brain were obtained. There is evidence of diffuse subarachnoid hemorrhage, with sulcal hyperdensity present in the sylvian fissures bilaterally as well as in the anterior interhemispheric fissure, basilar cisterns, and in p osterior fossa extra-axial space. In addition, there is intraventricular hemorrhage, prominent in the left lateral ventricle and third ventricle, as well as in the fourth ventricle and to a lesser degre e in the right lateral ventricle. Particular size is increased, with decreased sulcal visualization, in a pattern consistent with devel oping hydrocephalus. EXTRACRANIAL STRUCTURES: Unremarkable. IMPRESSION: Diffuse subarachnoid hemorrhage, intraventricular hemorrhage, developing hydrocephalus. CRITICAL RESULT: Time of Discovery (ELECTRICAL HARDWARE ENGINEER/CDT): [address] Time of Communication (ELECTRICAL HARDWARE ENGINEER/CDT): [address] Licensed Practitioner Receiving Report: Maria Eugenia PEARL In the emergency department Read-Back Performed: Yes. All CT scans at this location are performed using dose reduction to ALARA by means of automated expos ure control. Signer Name: Adonis Nagy MD Signed: 03/16/2022 9:54 AM Workstation Name: [id number]
[2022-03-16] MEDS ORDERED: VANCOMYCIN 1,250 MG in SODIUM CHLORIDE 0.9% 500 ML 500 ML IV ONE (10:00)
[2022-03-16] MEDS ORDERED: SODIUM CHLORIDE 0.9% IV ONE (10:00)
[2022-03-16] MEDS ORDERED: niCARdipine DRIP 40 MG/200 ML BAG IV SCH (10:00)
[2022-03-16] MEDS ORDERED: DESMOPRESSIN ACETATE IV ONE (10:00)
[2022-03-16 11:15] LABS: Hepatitis B Surface Antigen Non-Reactive (Negative); Hepatitis C Virus Antibody Non-Reactive (NonReactive)
[2022-03-16 11:27] VITALS: BP 200/114
--- NOTE | 2022-03-20 12:11 | Electrocardiograph Report ---
[facility] Test Date: 2022-03-16 Test Time: 10:25:26 Pat Name: KASIE GOMEZ Department: Room: Gender: M Waiver Analyst: AGUSTIN : 1990 Requested By: EVELYN ZVAALA Order Number: [id number] Reading MD: Nae Toribio Measurements Intervals [place] Rate: 60 P: 50 TX: 161 QRS: 21 QRSD: 89 T: 78 QT: 493 QTc: 494 Interpretive Statements Sinus rhythm Left atrial enlargement Nonspecific T abnrm, anterolateral leads Prolonged QT interval No previous ECG available for comparison Electronically Signed On 03-20-2022 12:11:21 EDT by Nae Toribio
== END 2022-03-16 11:00 | disposition short-term general hospital (02) ==
LOC: ED 07:46
DX: I12.0 Hypertensive chronic kidney disease with stage 5 chronic kidney disease or end stage renal disease (principal); N18.6 End stage renal disease; G43.909 Migraine, unspecified, not intractable, without status migrainosus; J45.909 Unspecified asthma, uncomplicated; Z20.2 Contact with and (suspected) exposure to infections with a predominantly sexual mode of transmission; Z87.891 Personal history of nicotine dependence
CPT/HCPCS: 36415; 70450; 71045; 72125; 80053; 80074; 82140; 82550; 84443; 85025; 85610; 87040; 93005; 96365; 96366; 96367; 96372; 96375; 99291; J0133; J0696; J1100; J1630; J1953; J2060; J2250; J2597; J3490; 80320; 96374; 99285; G0480; J3370; J7040